=== PATIENT | male | born 1945 | race Caucasian/White ===

== ENCOUNTER 2017-03-07 08:16 | Emergency (ER) | payer OTHER ==
[2017-03-07 08:22] VITALS: BP 131/57
--- NOTE | 2017-03-07 08:43 | UC ---
Skin Complaint HPI - HPI Summary HPI Summary: vesicular rash right side of has a 2 patches on right and left arm, also has an itchy confluent rash on back on back of neck - History of Current Complaint Chief Complaint: UCSkin Time Seen by Provider: 03/07/17 08:23 Stated Complaint: RASH Hx Obtained From: Patient Onset/Duration: Sudden Onset, Lasting Days, Still Present Timing: Constant Onset Severity: Mild Current Severity: Mild Pain Intensity: 0 Location: Diffuse Character: Redness Aggravating: Nothing Alleviating: Nothing Associated Signs & Symptoms: Positive: Rash - Allergy/Home Medications Allergies/Adverse Reactions: Allergies Allergy/AdvReac Type Severity Reaction Status Date / Time Bacitracin [From Neosporin] Allergy Intermediate Rash Verified 03/07/17 08:23 Neomycin [From Neosporin] Allergy Intermediate Rash Verified 03/07/17 08:23 Penicillin G Procaine Allergy Intermediate cyst Verified 03/07/17 08:23 Polymyxin B [From Neosporin] Allergy Intermediate Rash Verified 03/07/17 08:23 Rofecoxib [From Vioxx] Allergy Hives Verified 03/07/17 08:23 Review of Systems Constitutional: Negative Skin: Rash - as described Eyes: Negative ENT: Negative Respiratory: Negative Cardiovascular: Negative Gastrointestinal: Negative Genitourinary: Negative Motor: Negative Neurovascular: Negative Musculoskeletal: Negative Neurological: Negative Psychological: Negative All Other Systems Reviewed And Are Negative: Yes PMH/Surg Hx/FS Hx/Imm Hx Cardiovascular History: Other Other Cardiovascular History: mitral valve "issue" Cancer History: Prostate Cancer - Surgical History Surgical History: Yes Surgery Procedure, Year, and Place: prostatectomy. tonsillectomy. cyst from skin removed - Family History Known Family History: Positive: None - Social History Occupation: Employed Full-time Lives: With Family Alcohol Use: Weekly Substance Use Type: None Smoking Status (MU): Never Smoked Tobacco Physical Exam Triage Information Reviewed: Yes Appearance: Well-Appearing, No Pain Distress, Well-Nourished Vital Signs: Initial Vital Signs Temp 99.5 F 03/07/17 08:19 Pulse 48 03/07/17 08:19 Resp 18 03/07/17 08:19 BP 131/57 03/07/17 08:19 Pulse Ox 100 03/07/17 08:19 Vital Signs Reviewed: Yes Eye Exam: Normal Eyes: Positive: Conjunctiva Clear ENT Exam: Normal ENT: Positive: Normal ENT inspection, Hearing grossly normal, TMs normal. Negative: Nasal congestion, Nasal drainage, Trismus, Muffled/hoarse voice Dental Exam: Normal Neck exam: Normal Neck: Positive: Supple, Nontender Respiratory Exam: Normal Respiratory: Positive: Chest non-tender, Lungs clear, Normal breath sounds, No respiratory distress, No accessory muscle use Cardiovascular Exam: Normal Cardiovascular: Positive: RRR, No Murmur, Pulses Normal, Brisk Capillary Refill , Bradycardia Musculoskeletal Exam: Normal Musculoskeletal: Positive: Strength Intact, ROM Intact, No Edema Neurological Exam: Normal Neurological: Positive: Alert, Muscle Tone Normal Psychological Exam: Normal Skin Exam: Other Skin: Positive: Other - vesicular rash right side of face, right and left arm. uticaral looking rash on back and back of neck Course/Dx - Course Course Of Treatment: acyclovir, steroids, follow with pcp and dr. early - Differential Diagnoses - Skin Complaint Differential Diagnoses: Cellulitis, Local Allergic Reaction, Varicella Zoster, Other - HSV - Diagnoses Provider Diagnoses: Urticacia neck and back, Viral rash face and fore arms Discharge - Discharge Plan Condition: Stable Disposition: HOME Prescriptions: Acyclovir* [Zovirax TAB*] 800 mg PO 5ID #70 tab Triamcinolone 0.1% CREAM(NF) [Kenalog Cream 0.1%(NF)] 1 applic TOPICAL BID #60 mg predniSONE TAB* [Deltasone TAB*] 40 mg PO DAILY #10 tab Patient Education Materials: Contact Dermatitis (ED) Referrals: Beatrice Adamson MD [Primary Care Provider] - 3 Days Juan Carlos Early MD [Medical Doctor] - 2 Days () Additional Instructions: 1. The vesicular rash appears viral in nature we are treating with acyclovir. In 2 days if rash near eye does not resolve see Dr. Hester. 2. The itchy rash on you back appears to be contact dermatitis---a topic skin reaction-we are treating with Prednisone and triamcinolne cream
[2017-03-07] MEDS ORDERED: PrednisoLONE LIQ 3 MG/ML* 15 MG/5 ML UDC PO ONE (08:44)
== END 2017-03-07 09:12 | disposition home or self-care (01) ==
LOC: UCEAST 08:16
DX: L50.9 Urticaria, unspecified (principal); B34.9 Viral infection, unspecified
CPT/HCPCS: 99212; G0463